=== PATIENT | female | born 1980 | race Caucasian/White ===

== ENCOUNTER 2018-09-02 16:11 | Inpatient (IN) | payer OTHER ==
[~2018-09-02] VITALS: Ht 165.1 cm; Wt 78.0 kg
[~2018-09-02 16:11] MED LIST: LIDOCAINE PF 2%, 200 MG/10 ML AMPUL.LUER (EPIDURAL) INJ ONE; LR 1,000 ML IV.SOLN IV ONE; MORPHINE SULFATE 10MG/10ML PF AMP EP ONE; NS IRRIG SOLN 1000 ML IR ONE; OXYTOCIN 10 UNIT/ML VIAL IV ONE; fentaNYL CITRATE/PF 100 MCG/2 ML AMP IVP ONE
[2018-09-02] MEDS ORDERED: LR 1,000 ML IV ONE (17:16)
[2018-09-02] MEDS ORDERED: OXYTOCIN/0.9 % SODIUM CHLORIDE 1,000 ML IV SCH (17:16)
[2018-09-02] MEDS: LR 1,000 ML IV SCH (17:25)
[2018-09-02] MEDS ORDERED: TERBUTALINE SULFATE 1 MG/ML VIAL SUBCUT ONE (17:30)
[2018-09-02] MEDS ORDERED: NALBUPHINE HCL 10 MG/ML AMP IVP PRN (17:30)
[2018-09-02 17:44] LABS: RED BLOOD CELL COUNT(AUTO) 4.11 MIL/uL (4.2-6.2); WHITE BLOOD COUNT (AUTO) 10.9 K/uL (4.8-10.8)
[2018-09-02 17:45] LABS: HEMATOCRIT 35.8 % (36-48); HEMOGLOBIN 12.3 g/dL (12.0-16.0); LYMPHOCYTES % (AUTO) 12.8 % (20.5-51.5); MEAN CORPUSCULAR HEMOGLOBIN 30 pg (27-31); MEAN CORPUSCULAR HGB CONC 34 % (32-36); MEAN CORPUSCULAR VOLUME 87 fL (79.0-98.0); MONOCYTES % (AUTO) 4.2 % (1.7-9.3); NEUTROPHILS % (AUTO) 81.9 % (40.0-70.0); PLATELET COUNT (AUTO) 214 K/uL (130-430)
[2018-09-02] MEDS ORDERED: AMPICILLIN SODIUM 2 GM in NS 100 ML IV ONE (17:45)
[2018-09-02 17:46] LABS: BASOPHILS # (AUTO) 0.1 K/uL (0.0-0.2); BASOPHILS % (AUTO) 0.6 % (0.0-2.0); EOSINOPHILS # (AUTO) 0.1 K/uL (0.0-0.4); EOSINOPHILS % (AUTO) 0.5 % (0.0-4.0); LYMPHOCYTES # (AUTO) 1.4 K/uL (1.0-5.5); MONOCYTES # (AUTO) 0.5 K/uL (0.0-1.0); NEUTROPHILS # (AUTO) 8.9 K/uL (1.8-7.7)
[2018-09-02] MEDS ORDERED: DINOPROSTONE 10 MG SUPP VG ONE (18:15)
[2018-09-02 18:20] VITALS: BP_SYST 117
[2018-09-02] MEDS: AMPICILLIN SODIUM 1 GM in NS 50 ML IV SCH (22:00)
[2018-09-03] MEDS: LR 1,000 ML IV SCH (01:38)
[2018-09-03] MEDS: AMPICILLIN SODIUM 1 GM in NS 50 ML IV SCH ×2 (02:00→10:00)
[2018-09-03] MEDS ORDERED: ROPIVACAINE 0.2% 100 ML ONE ×2 (03:08→08:41)
[2018-09-03] MEDS ORDERED: fentaNYL CITRATE/PF 100 MCG/2 ML AMP ONE ×2 (03:08→08:40)
[2018-09-03] MEDS ORDERED: CEFAZOLIN 2 GM IVPB PREMIX 50 ML IV ONE ×2 (14:00)
[2018-09-03] MEDS ORDERED: LR 500 ML IV ONE (14:05)
[2018-09-03] MEDS ORDERED: FENT2mCg/mL-ROPIVA0.2%/NS EPID 150 ML EP SCH (14:15)
[2018-09-03] MEDS ORDERED: NALOXONE HCL 1 MG in NACL 0.9% 1,000 ML IV PRN ×4 (14:48)
[2018-09-03] MEDS ORDERED: LR 1,000 ML IV SCH ×2 (14:48→15:19)
[2018-09-03] MEDS ORDERED: ONDANSETRON HCL 4 MG/2 ML VIAL IVP PRN (15:00)
[2018-09-03] MEDS ORDERED: DIPHENHYDRAMINE HCL 50 MG CAPSULE PO PRN (15:00)
[2018-09-03] MEDS ORDERED: NALOXONE HCL 0.4 MG/ML AMP (NARCAN) IVP PRN ×3 (15:00)
[2018-09-03] MEDS ORDERED: MEPERIDINE HCL/PF 25 MG/ML DISP.SYRIN IVP PRN ×2 (15:00)
[2018-09-03] MEDS ORDERED: HYDROmorphone 2 MG/ML VIAL IVP PRN ×2 (15:00)
[2018-09-03] MEDS ORDERED: DIPHENHYDRAMINE INJ 50 MG/ML VIAL IVP PRN (15:00)
[2018-09-03] MEDS ORDERED: HYDROmorphone 1 MG INJ. 1 MG/ML AMPUL IVP PRN (15:00)
[2018-09-03] MEDS ORDERED: OXYTOCIN/0.9 % SODIUM CHLORIDE 1,000 ML IV ONE (15:19)
[2018-09-03] MEDS ORDERED: BISACODYL 10 MG/SUPPOSITORY RC PRN (15:30)
[2018-09-03] MEDS ORDERED: RHO(D) IMMUNE GLOBULIN/MALTOSE 1500 UNITS/1.3 ML (WINHRO) IM PRN (15:30)
[2018-09-03] MEDS ORDERED: ANUSOL 1 EA SUPP.RECT (PREPARATION H) RC PRN (15:30)
[2018-09-03] MEDS ORDERED: DIPH-TET-PERTUS Vaccine 0.5 ML VIAL (ADACEL) I.M. PRN (15:30)
[2018-09-03] MEDS ORDERED: SENNOSIDES/DOCUSATE SODIUM 1 TAB TABLET(SENOKOT-S) PO PRN (15:30)
[2018-09-03] MEDS ORDERED: MEASLES,MUMPS&RUBELLA VACC/PF 12500 UNIT/0.5 ML VIAL SUBQ PRN (15:30)
[2018-09-03] MEDS ORDERED: LANOLIN 7 GM OINT. TP PRN (15:30)
[2018-09-03] MEDS ORDERED: OXYCODONE/ACETAMINOPHEN 5-325 TABLET PO PRN (15:30)
[2018-09-03] MEDS ORDERED: ACETAMINOPHEN 325 MG TABLET PO PRN (15:30)
[2018-09-03 15:35] VITALS: BP_SYST 122
[2018-09-03] MEDS ORDERED: HYDROmorphone 1 MG INJ. 1 MG/ML AMPUL ONE (16:05)
[2018-09-03] MEDS ORDERED: TEMAZEPAM 15 MG CAPSULE PO PRN (21:00)
[2018-09-04] MEDS: IBUPROFEN 600 MG TABLET PO SCH ×4 (05:44→23:50)
[2018-09-04 07:31] LABS: HEMATOCRIT 30.6 % (36-48); HEMOGLOBIN 10.2 g/dL (12.0-16.0); MEAN CORPUSCULAR HEMOGLOBIN 30 pg (27-31); MEAN CORPUSCULAR HGB CONC 34 % (32-36); MEAN CORPUSCULAR VOLUME 89 fL (79.0-98.0); RED BLOOD CELL COUNT(AUTO) 3.43 MIL/uL (4.2-6.2); WHITE BLOOD COUNT (AUTO) 13.7 K/uL (4.8-10.8)
[2018-09-04 07:32] LABS: BASOPHILS # (AUTO) 0.1 K/uL (0.0-0.2); BASOPHILS % (AUTO) 0.5 % (0.0-2.0); EOSINOPHILS % (AUTO) 0.2 % (0.0-4.0); LYMPHOCYTES # (AUTO) 1.4 K/uL (1.0-5.5); MONOCYTES # (AUTO) 0.8 K/uL (0.0-1.0); MONOCYTES % (AUTO) 5.7 % (1.7-9.3); NEUTROPHILS # (AUTO) 11.5 K/uL (1.8-7.7); NEUTROPHILS % (AUTO) 83.6 % (40.0-70.0); PLATELET COUNT (AUTO) 171 K/uL (130-430); RED CELL DISTRIBUTION WIDTH 15.8 % (9.0-15.0)
[2018-09-04] MEDS: SIMETHICONE 80 MG TAB.CHEW PO PRN ×4 (08:45→23:51)
[2018-09-04] MEDS: DOCUSATE SODIUM 100 MG CAPSULE PO PRN ×2 (08:45→23:50)
[2018-09-04] MEDS: OXYCODONE/ACETAMINOPHEN 5-325 TABLET PO PRN ×5 (08:46→23:49)
[2018-09-04] MEDS ORDERED: LIDOCAINE PF 2%, 200 MG/10 ML AMPUL.LUER (EPIDURAL) INJ ONE (11:27)
[2018-09-05] MEDS: OXYCODONE/ACETAMINOPHEN 5-325 TABLET PO PRN (01:38)
[2018-09-05] MEDS: SIMETHICONE 80 MG TAB.CHEW PO PRN ×3 (05:54→08:07)
[2018-09-05] MEDS: IBUPROFEN 600 MG TABLET PO SCH (05:54)
[2018-09-05] MEDS: DOCUSATE SODIUM 100 MG CAPSULE PO PRN (08:08)
== END 2018-09-05 11:57 | disposition home or self-care (01) | DRG 787 ==
LOC: SPU 17:00
PROVIDERS: ADMIT Obstetrics & Gynecology; ATTEND Obstetrics & Gynecology
PROC: 3E0R3BZ Introduction of Anesthetic Agent into Spinal Canal, Percutaneous Approach (ICD-10-PCS; 2018-09-03)
PROC: 00HU33Z Insertion of Infusion Device into Spinal Canal, Percutaneous Approach (ICD-10-PCS; 2018-09-03)
PROC: 10D00Z1 Extraction of Products of Conception, Low, Open Approach (ICD-10-PCS; principal; 2018-09-03 14:00)
DX: O76 Abnormality in fetal heart rate and rhythm complicating labor and delivery (principal); R71.0 Precipitous drop in hematocrit; D25.9 Leiomyoma of uterus, unspecified; O34.13 Maternal care for benign tumor of corpus uteri, third trimester; Z82.49 Family history of ischemic heart disease and other diseases of the circulatory system; Z37.0 Single live birth; Z3A.39 39 weeks gestation of pregnancy; Z87.410 Personal history of cervical dysplasia
CPT/HCPCS: 36415; 81002-TC; 85025; 86592; 86886; 86900; 86901; 94760; J0290; J0690; J1170; J2001; J2274; J2590; J2795; J3010; J7120